=== PATIENT | female | born 1980 | race Caucasian/White ===

== ENCOUNTER → 2020-06-17 | Outpatient (CLI) | payer OTHER ==
[~2020-06-17] MED LIST: CONTRAST GIVEN. MC PRN; IOHEXOL 300 MG/ML 100ML VIAL. IV ONE
--- NOTE | 2020-06-17 19:58 | RAD ---
CT SCAN OF THE ABDOMEN AND PELVIS with and without IV CONTRAST. History: Reason: POST-OP, DYSURIA, KIDNEY STONES, RECENT LEFT SIDED OVARIAN SOULEYMANE Comparison:None. Procedure: Contiguous axial images of the abdomen and pelvis were performed after the administration of 75 cc of Omni 300 IV contrast. Portal venous and delayed phases were obtained. Maximum intensity projected images are obtained with a delayed images for a CT urogram. Oral contrast: No. Findings: There is a 9.6 cm x 1.7 cm x 7.1 cm air-fluid collection in the abdominal wall just anterior to the abdominis rectus. This is a thin enhancing rim. There are surgical clips in the abdominal wall. There is a gastric lap band. Fluid in the distal esophagus. There has been prior cholecystectomy. The appendix is not well seen. Liver: Unremarkable Spleen: Tiny cyst posteriorly Pancreas: Unremarkable Adrenal Glands: Unremarkable Kidneys: There are multiple small nonobstructive stones in the right renal pelvis. Multiple densities in the low pelvis are felt to be phleboliths. 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 There is no mass or lymphadenopathy. There is no free air. There is no free fluid. The urinary bladder is collapsed and not well evaluated. There is no extravasation of contrast. Impression: 1. Air-fluid collection abdominal wall likely postop seroma. 2. Duplicated left ureter a normal variant. 3. Fluid in the esophagus could be gastroesophageal reflux. 4. Multiple nonobstructive stones in the right renal pelvis. End impression PQRS Compliance Statement: One or more of the following individualized dose reduction techniques were utilized for this examination: 1. Automated exposure control 2. Adjustment of the mA and/or kV according to patient size 3. Use of iterative reconstruction technique Electronically signed by: Moreno Wilson III, MD (06/17/2020 7:55 PM) [facility]
== END ==
LOC: RAD 18:11 → EDBD 18:11
PROVIDERS: ATTEND Obstetrics & Gynecology
DX: N20.0 Calculus of kidney (principal); R30.0 Dysuria; G89.29 Other chronic pain; Z90.49 Acquired absence of other specified parts of digestive tract
CPT/HCPCS: 74178; Q9967

== ENCOUNTER 2021-02-25 12:31 | Emergency (ER) | payer OTHER ==
[~2021-02-25] VITALS: Ht 172.7 cm; Wt 58.6 kg
[2021-02-25] MEDS ORDERED: ONDANSETRON PF 4 MG/2 ML VIAL. IVP ONE (14:00)
[2021-02-25] MEDS ORDERED: IV NORMAL SALINE 1000ML BAG 1,000 ML IV ONE (14:00)
[2021-02-25] MEDS ORDERED: HYDROmorphone 2 MG/ML VIAL IVP ONE ×3 (14:00→16:45)
[2021-02-25 14:10] LABS: BILIRUBIN,URINE SMALL (NEG); CLARITY,URINE CLEAR; COLOR,URINE AMBER; NITRITE,URINE NEGATIVE (NEG); PH,URINE 6.5 (<5.0-8.0); PROTEIN,URINE NEGATIVE (NEG-TRACE)
[2021-02-25 14:26] LABS: BACTERIA,URINE FEW /HPF (0-FEW)
[2021-02-25] MEDS ORDERED: IOHEXOL 300 MG/ML 100ML VIAL. IV ONE ×2 (14:30→15:15)
[2021-02-25] MEDS ORDERED: CONTRAST GIVEN. MC PRN ×2 (14:30→15:15)
[2021-02-25 14:39] LABS: BASO # 0.1 x10^3/uL (0.0-0.2); BASO % 1 % (0-3); EOS # 0.1 x10^3/uL (0.0-0.7); EOS % 2 % (0-3); HEMATOCRIT 39.2 % (36.0-47.0); HEMOGLOBIN 13.3 g/dL (12.0-15.5); LYMPH % 16 % (24-48); MEAN CORPUSCULAR HEMOGLOBIN 33 pg (25-35); MEAN CORPUSCULAR HGB CONC 34 g/dL (31-37); MEAN CORPUSCULAR VOLUME 96 fL (79-100); MONO # 0.4 x10^3/uL (0.0-1.1); MONO % 6 % (0-9); NEUT # 4.4 x10^3/uL (1.8-7.7); NEUT % 75 % (31-73); PLATELET COUNT 186 x10^3/uL (140-400); RED BLOOD COUNT 4.06 x10^6/uL (3.50-5.40); RED CELL DISTRIBUTION WIDTH 15.8 % (11.5-14.5); WHITE BLOOD COUNT 5.9 x10^3/uL (4.0-11.0)
[2021-02-25 15:08] LABS: ALBUMIN 3.8 g/dL (3.4-5.0); ALBUMIN/GLOBULIN RATIO 1.2 (1.0-1.7); CALCIUM 8.8 mg/dL (8.5-10.1); CREATININE 0.6 mg/dL (0.6-1.0); GFR 111.3; TOTAL PROTEIN 6.9 g/dL (6.4-8.2)
[2021-02-25] MEDS ORDERED: POTASSIUM BICARB 20 MEQ EFFERVESCENT TABLET. PO ONE (15:30)
[2021-02-25] MEDS ORDERED: METOCLOPRAMIDE HCL 10 MG/2 ML VIAL. IVP ONE (15:45)
--- NOTE | 2021-02-25 16:11 | RAD ---
EXAM: Abdomen and pelvis CT with intravenous contrast. HISTORY: Right lower quadrant pain. TECHNIQUE: Computed tomographic images of the abdomen and pelvis were obtained following the administ ration of intravenous contrast. Multiplanar reformatting was performed. *One or more of the following individualized dose reduction techniques were utilized for this examina tion: 1. Automated exposure control. 2. Adjustment of the mA and/or kV according to patient size. 3. Use of iterative reconstruction technique. COMPARISON: 06/17/2020 FINDINGS: Evaluation of the lower thorax demonstrates no infiltrate or pleural effusion. There is a p atulous fluid-filled distal esophagus. There is a gastric lap band traversing the proximal gastric ca rdia. There is periportal edema. The gallbladder is surgically absent. There is a common bile duct li angelina due to reservoir effect status post cholecystectomy. The pancreas is unremarkable. There is a sm all cyst or hemangioma within the spleen. The adrenal glands are unremarkable. There is a partially duplicated left renal collecting system. There are punctate nonobstructing renal stones measuring up to 2 mm. There is no hydronephrosis or suspicious renal lesion. There is no evid ence of appendicitis. There is no evidence of bowel obstruction. There is mild wall thickening involv ing loops of small bowel within the left abdomen likely due to peristalsis. There is no convincing ac marshall enteritis or colitis. The bladder is unremarkable. The uterus is absent. There is a 2.2 cm periph erally enhancing right ovarian cyst, likely an involuting cyst. There is a trace amount of pelvic opal e fluid. There are postoperative clips within the ventral abdominal wall. There is no acute or suspic ious osseous lesion. IMPRESSION: 1. 2.2 cm suspected involuting right ovarian cyst. 2. Patulous distal esophagus likely related to a gastric lap band. 3. Mild periportal edema. In the absence of abnormal liver enzyme laboratory values, this is likely d ue to bolus patient hydration. There is also slight biliary ductal dilatation due to reservoir effect status post cholecystectomy. 4. Bilateral nephrolithiasis. 4. Mild bowel wall thickening within the left abdomen, likely due to peristalsis or under distention. There is no convincing enteritis or colitis. There is no appendicitis. Electronically signed by: Radha Jacobson MD (02/25/2021 4:09 PM) [id number]
--- NOTE | 2021-02-25 16:21 | PHYS DOC ---
Past Medical History Past Surgical History: Cholecystectomy, Hysterectomy, Other Additional Past Surgical Histo: LITHROTRIPSY, LEFT OVARY, LAP BAND 2009 (NATE BABB APRN) General Adult EDM: Chief Complaint: ABDOMINAL PAIN HPI: HPI: Patient is a 40 year old female presents emergency department complaining of right lower quadrant pain for the past 7 days, states she has been seen at [facility] several times, reports that last Wednesday she was diagnosed with colitis, was given Colace and [place] for pain, reports she was told to not take the [place] because it may make her constipated, 2 use the Colace first. Patient reports she has had several large bowel movements since using the Colace. Patient reports that her right lower quadrant pain has gotten worse and it is now a 10 out of 10. Patient reports she has had several kidney stone exacerbations in the past and feels that this pain is worse. Patient reports that when her pain gets this bad that she requires Dilaudid for pain control. Patient states she is nauseated, has not vomited today. Patient denies chest pain, shortness of breath, headaches, rashes of her skin, vaginal discharge, increased pain with urination, denies urinary frequency, or burning with urination. Patient denies STI concerns. Patient denies any other physical complaints or physical concerns. (NATE BABB APRN) Review of Systems: Review of Systems: 14 body systems of review of systems have been reviewed. See HPI for pertinent positives and negative responses, otherwise all other systems are negative, nonpertinent or noncontributory. Constitutional: Negative except as outlined in HPI above. Skin: Negative except as outlined in HPI above. Eyes: Negative except as outlined in HPI above. HENT: Negative except as outlined in HPI above. Respiratory: Negative except as outlined in HPI above. Cardiovascular: Negative except as outlined in HPI above. GI: Negative except as outlined in HPI above. : Negative except as outlined in HPI above. Musculoskeletal: Negative except as outlined in HPI above. Integument: Negative except as outlined in HPI above. Neurologic: Negative except as outlined in HPI above. Endocrine: Negative except as outlined in HPI above. Lymphatic: Negative except as outlined in HPI above. Psychiatric: Negative except as outlined in HPI above. (NATE BABB APRN) Heart Score: C/O Chest Pain: No Risk Factors: Risk Factors: DM, Current or recent (<one month) smoker, HTN, HLP, family history of CAD, obesity. Risk Scores: Score 0 - 3: 2.5% MACE over next 6 weeks - Discharge Home Score 4 - 6: 20.3% MACE over next 6 weeks - Admit for Clinical Observation Score 7 - 10: 72.7% MACE over next 6 weeks - Early Invasive Strategies (NATE BABB APRN) Current Medications: Current Medications Medications (Trade) Dose Ordered Sig/Silvestre Start Time Stop Time Status Last Admin Dose Admin Hydromorphone HCl (Dilaudid) 1 mg 1X ONCE 02/25/21 15:45 02/25/21 15:46 DC 02/25/21 16:10 1 MG Info (CONTRAST GIVEN -- Rx MONITORING) 1 each PRN DAILY PRN 02/25/21 15:15 02/27/21 15:14 Iohexol (Omnipaque 300 Mg/ml) 75 ml 1X ONCE 02/25/21 15:15 02/25/21 15:16 DC Metoclopramide HCl (Reglan Vial) 10 mg 1X ONCE 02/25/21 15:45 02/25/21 15:46 DC 02/25/21 16:10 10 MG Ondansetron HCl (Zofran) 4 mg 1X ONCE 02/25/21 14:00 02/25/21 14:05 DC 02/25/21 14:27 4 MG Potassium Bicarbonate (Potassium Effervescent Tablet) 40 meq 1X ONCE 02/25/21 15:30 02/25/21 15:31 DC Sodium Chloride 1,000 ml @ 1,000 mls/hr 1X ONCE 02/25/21 14:00 02/25/21 14:59 DC 02/25/21 14:28 1,000 MLS/HR (NATE BABB APRN) Allergies: Allergies: Allergies Coded Allergies Type Severity Reaction Last Updated Verified No Known Drug Allergies 06/17/20 No (NATE BABB APRN) Physical Exam: PE: Constitutional: Well developed, well nourished, no acute distress, non-toxic appearance. Patient is tearful, writhing around in bed, patient's vital signs do not support patient's physical presentation in appearance. HENT: Normocephalic, atraumatic. Eyes: Conjunctiva normal, no discharge. Neck: Normal range of motion. Cardiovascular: Distal cap refill less than 2 seconds, no cyanosis appreciated. Lungs & Thorax: Patient is in no respiratory distress, no adventitious lung sounds appreciated. Abdomen: Bowel sounds normal, soft, no masses, no pulsatile masses. No bruising or skin discoloration of the abdomen. Pain to palpation right lower quadrant, positive McBurney's point tenderness, positive rebound tenderness, negative psoas sign, positive straight leg test. Skin: Warm, dry, no erythema, no rash. Back: No tenderness, no CVA tenderness. Extremities: No tenderness, no cyanosis, no clubbing, ROM intact, no edema. Neurologic: Alert and oriented X 3, normal motor function, normal sensory function, no focal deficits noted. Psychologic: Affect normal, judgement normal, mood normal. (NATE BABB APRN) Current Patient Data: Labs: Laboratory Tests Test 02/25/21 13:55 02/25/21 14:30 Urine Collection Type Unknown Urine Color Anh Urine Clarity Clear Urine pH 6.5 (<5.0-8.0) Urine Specific Convent 1.025 (1.000-1.030) Urine Protein Negative mg/dL (NEG-TRACE) Urine Glucose (UA) Negative mg/dL (NEG) Urine Ketones (Stick) Trace mg/dL (NEG) Urine Blood Moderate (NEG) Urine Nitrite Negative (NEG) Urine Bilirubin Small (NEG) Urine Urobilinogen Dipstick 1.0 mg/dL (0.2 mg/dL) Urine Leukocyte Esterase Trace (NEG) Urine RBC 11-20 /HPF (0-2) Urine WBC 1-4 /HPF (0-4) Urine Squamous Epithelial Cells Mod /LPF Urine Bacteria Few /HPF (0-FEW) Urine Mucus Marked /LPF White Blood Count 5.9 x10^3/uL (4.0-11.0) Red Blood Count 4.06 x10^6/uL (3.50-5.40) Hemoglobin 13.3 g/dL (12.0-15.5) Hematocrit 39.2 % (36.0-47.0) Mean Corpuscular Volume 96 fL (79-100) Mean Corpuscular Hemoglobin 33 pg (25-35) Mean Corpuscular Hemoglobin Concent 34 g/dL (31-37) Red Cell Distribution Width 15.8 % (11.5-14.5) H Platelet Count 186 x10^3/uL (140-400) Neutrophils (%) (Auto) 75 % (31-73) H Lymphocytes (%) (Auto) 16 % (24-48) L Monocytes (%) (Auto) 6 % (0-9) Eosinophils (%) (Auto) 2 % (0-3) Basophils (%) (Auto) 1 % (0-3) Neutrophils # (Auto) 4.4 x10^3/uL (1.8-7.7) Lymphocytes # (Auto) 1.0 x10^3/uL (1.0-4.8) Monocytes # (Auto) 0.4 x10^3/uL (0.0-1.1) Eosinophils # (Auto) 0.1 x10^3/uL (0.0-0.7) Basophils # (Auto) 0.1 x10^3/uL (0.0-0.2) Sodium Level 140 mmol/L (136-145) Potassium Level 3.0 mmol/L (3.5-5.1) L Chloride Level 103 mmol/L (98-107) Carbon Dioxide Level 31 mmol/L (21-32) Anion Gap 6 (6-14) Blood Urea Nitrogen 5 mg/dL (7-20) L Creatinine 0.6 mg/dL (0.6-1.0) Estimated GFR (Cockcroft-Gault) 111.3 BUN/Creatinine Ratio 8 (6-20) Glucose Level 58 mg/dL (70-99) L Calcium Level 8.8 mg/dL (8.5-10.1) Total Bilirubin 1.0 mg/dL (0.2-1.0) Aspartate Amino Transferase (AST) 16 U/L (15-37) Alanine Aminotransferase (ALT) 25 U/L (14-59) Alkaline Phosphatase 87 U/L (46-116) Total Protein 6.9 g/dL (6.4-8.2) Albumin 3.8 g/dL (3.4-5.0) Albumin/Globulin Ratio 1.2 (1.0-1.7) Lipase 88 U/L (73-393) Laboratory Tests 02/25/21 14:30 Laboratory Tests 02/25/21 14:30 Vital Signs: Vital Signs Date Time Temp Pulse Resp B/P (MAP) Pulse Ox O2 Delivery O2 Flow Rate FiO2 02/25/21 16:10 18 99 Room Air 02/25/21 12:52 98.4 75 113/56 98.4 (NATE BABB APRN) EKG: EKG: [] (NATE BABB APRN) Radiology/Procedures: Radiology/Procedures: PATIENT: CJ SANTIAGO ACCOUNT: [id number] : 1980 LOCATION: ER AGE: 40 SEX: F EXAM STATUS: REG ER ORD. PHYSICIAN: NATE BABB APRN REASON: RLQ pain PROCEDURE: CT ABD PELV W/ IV CONTRST ONLY EXAM: Abdomen and pelvis CT with intravenous contrast. HISTORY: Right lower quadrant pain. TECHNIQUE: Computed tomographic images of the abdomen and pelvis were obtained following the administration of intravenous contrast. Multiplanar reformatting was performed. *One or more of the following individualized dose reduction techniques were utilized for this examination: 1. Automated exposure control. 2. Adjustment of the mA and/or kV according to patient size. 3. Use of iterative reconstruction technique. COMPARISON: 06/17/2020 FINDINGS: Evaluation of the lower thorax demonstrates no infiltrate or pleural effusion. There is a patulous fluid-filled distal esophagus. There is a gastric lap band traversing the proximal gastric cardia. There is periportal edema. The gallbladder is surgically absent. There is a common bile duct likely due to reservoir effect status post cholecystectomy. The pancreas is unremarkable. There is a small cyst or hemangioma within the spleen. The adrenal glands are unremarkable. There is a partially duplicated left renal collecting system. There are punctate nonobstructing renal stones measuring up to 2 mm. There is no hydronephrosis or suspicious renal lesion. There is no evidence of appendicitis. There is no evidence of bowel obstruction. There is mild wall thickening involving loops of small bowel within the left abdomen likely due to peristalsis. There is no convincing acute enteritis or colitis. The bladder is unremarkable. The uterus is absent. There is a 2.2 cm peripherally enhancing right ovarian cyst, likely an involuting cyst. There is a trace amount of pelvic free fluid. There are postoperative clips within the ventral abdominal wall. There is no acute or chawla spicious osseous lesion. IMPRESSION: 1. 2.2 cm suspected involuting right ovarian cyst. 2. Patulous distal esophagus likely related to a gastric lap band. 3. Mild periportal edema. In the absence of abnormal liver enzyme laboratory values, this is likely due to bolus patient hydration. There is also slight biliary ductal dilatation due to reservoir effect status post cholecystectomy. 4. Bilateral nephrolithiasis. 4. Mild bowel wall thickening within the left abdomen, likely due to peristalsis or under distention. There is no convincing enteritis or colitis. There is no appendicitis. Electronically signed by: Radha Cruz MD (02/25/2021 4:09 PM) [id number] DICTATED and SIGNED BY: RADHA CRUZ MD DATE: 02/25/21 [id number] PATIENT: CJ SANTIAGO ACCOUNT: [id number] : 1980 LOCATION: ER AGE: 40 SEX: F EXAM STATUS: REG ER ORD. PHYSICIAN: NATE BABB APRN REASON: Right adnexal pain, torsion study PROCEDURE: TRANSVAGINAL EXAM: Pelvic sonogram. HISTORY: Right adnexal pain. TECHNIQUE: Transvaginal sonographic imaging of the pelvis was performed. COMPARISON: CT obtained on the same date. FINDINGS: The uterus and left ovary are surgically absent. The right ovary measures 4.4 x 2.8 x 2.4 cm and contains a complicated cyst measuring 2.8 cm. This likely hemorrhagic. There is normal blood flow within the right ovary. There is no pelvic free fluid. IMPRESSION: 1. 2.8 cm suspected hemorrhagic right ovarian cyst. There is no evidence of ovarian torsion. 2. Surgically absent uterus and left ovary. Electronically signed by: Radha Cruz MD (02/25/2021 5:29 PM) [id number] (NATE BABB APRN) Course & Med Decision Making: Course & Med Decision Making Pertinent Labs and Imaging studies reviewed. (See chart for details) 40-year-old female, vital signs reviewed, presents to the emergency department with chief complaint of right lower quadrant pain for the past week. Patient's physical examination concerning for appendicitis versus other abdominal process. Will order urinalysis assay, CT abdomen pelvis with IV contrast. IV fluids, IV pain medications, antinausea medications IV. Patient's CT abdomen concerning for cyst of right ovary, will order sonogram to rule out ovarian torsion, the patient's urine is not infected. Pelvic ultrasound to rule out ovarian torsion negative for ovarian torsion however does report 2.8 cm right hemorrhagic cyst, called and to discuss case with EMPLOYEE WELFARE MANAGER specialist Dr. Brooke who recommended discharge to home and follow-up in office this week if hemoglobin is stable and within normal limits. The patient's serum lab work unremarkable, the patient is not anemic. Upon reexamination of the patient, patient reports her pain is down to a 5 out of 10. Discussed with patient pelvic ultrasound findings, Dr. Brooke's recommendations, patient reports she is followed by EMPLOYEE WELFARE MANAGER Dr. Rojo who has recommended her right ovary be removed, Dr. Rojo told her she suspected her pain would come back and she would have problems if her ovary was not removed. Patient reveals that she did not want to lose her last ovary as her left ovary has been removed already. Discussed with patient need to follow-up with her EMPLOYEE WELFARE MANAGER specialist Dr. Rojo for ongoing evaluation and care for right ovarian discrepancies. 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 Discussed with the patient all findings and diagnostic testing as well as the need to follow-up with their primary care provider for further evaluation and treatment or return to the ED if any new or worsening symptoms. Strict return precautions were also discussed at length, the patient voiced understanding and agreement with the discharge planning. The patient was nontoxic in appearance, in no apparent distress, and hemodynamically stable at the time of disposition. (NATE BABB APRN) Course & Med Decision Making I have participated in the care of this patient and I have reviewed and agree with all pertinent clinical information above including history, exam, and recommendations. EMPLOYEE WELFARE MANAGER consult as above, findings of hemorrhagic cyst on objective work-up. Patient stable for discharge with follow-up in the clinic. Isela Carranza DO (ISELA CARRANZA DO) Pari Disclaimer: Pari Disclaimer: This electronic medical record was generated, in whole or in part, using a voice recognition dictation system. (NATE BABB APRN) Departure Departure Impression: Primary Impression: Abdominal pain Qualified Codes: R10.31 - Right lower quadrant pain Additional Impression: Ovarian cyst Qualified Codes: N83.201 - Unspecified ovarian cyst, right side Disposition: 01 HOME / SELF CARE / HOMELESS Condition: GOOD Referrals: [facility] LEMONS-[facility]IN[facility] (PCP) Patient Instructions: Ovarian Cyst Additional Instructions: You were seen today in the emergency department for right lower quadrant abdominal pain. An extensive abdominal work-up was performed today, the CT scan showed a ovarian cyst of the right ovary, your pain was difficult to control, therefore a sonogram of the ovary to examine the fallopian tube was performed to rule out a torsion, there was no ovarian torsion. You had indicated that your EMPLOYEE WELFARE MANAGER specialist suspected that your right ovary may need removed. Please follow-up with EMPLOYEE WELFARE MANAGER specialist Dr. Rojo for reexamination, please let Dr. Rojo know of the scans that were performed here today so that Dr. Rojo can review them to assist in making a educated decision in your health care. Please continue to use your home pain medication as directed by your doctors. Thank you for visiting our Emergency Department. It was a pleasure taking care of you today in the emergency department and we appreciate you trusting us with your care. If any additional problems come up don't hesitate to return to visit us. Please follow up with your primary care provider so they can plan additional care if needed and know about the problem that you had. If symptoms worsen come back to the Emergency Department. Any concerning symptoms that start such as chest pain, shortness of air, weakness or numbness on one side of the body, running high fevers or any other concerning symptoms return to the ER. EMERGENCY DEPARTMENT GENERAL DISCHARGE INSTRUCTIONS Thank you for coming to [facility] Emergency Department (ED) today and trusting us with you care. We trust that you had a positive experience in our Emergency Department. If you wish to speak to the department management, you may call the Director at [phone]. YOUR FOLLOW UP INSTRUCTIONS ARE FOLLOWS: 1. Do you have a private Doctor? If you do not have a private doctor, please ask for a resource list of physicians or clinics that may be able to assist you with follow up care. 2. The Emergency Physicain has interpreted your x-rays. The X-Ray specialist will also review them. If there is a change in the findings, you will be notified in 48 hours when at all possible. 3. A lab test or culture has been done, your results will be reviewed and you will be notified if you need a change in treatment. ADDITIONAL INSTRUCTIONS AND INFORMATION: 1. Your care today has been supervised by a physician who is specially trained in emergency care. Many problems require more than one evaluation for a complete diagnosis and treatment. We recommend that you schedule your follow up appointment as recommended to ensure complete treatment of you illness or injury. If you are unable to obtain follow up care and continue to have a problem, or if your condition worsens, we recommend that you return to the ED. 2. We are not able to safely determine your condition over the phone nor are we able to give sound medical advice over the phone. For these safety reasons, if you call for medical advice we will ask you to come to the ED for further evaluation. 3. If you have any questions regarding these discharge instructions please call the ED at [phone]. SAFETY INFORMATION: In the interest of safety, wellness, and injury prevention; we encourage you to wear your sealbelt, if you smoke; quite smoking, and we encourage family to use a prot ective helmet for bicycling and other sporting events that present an increased risk for head injury. IF YOUR SYMPTOMS WORSEN OR NEW SYMPTOMS DEVELOP, OR YOU HAVE CONCERNS ABOUT YOUR CONDITION; OR IF YOUR CONDITION WORSENS WHILE YOU ARE WAITING FOR YOUR FOLLOW UP APPOINTMENT; EITHER CONTACT YOUR PRIMARY CARE DOCTOR, THE PHYSICIAN WHOSE NAME AND NUMBER YOU WERE GIVEN, OR RETURN TO THE ED IMMEDIATELY. NATE BABB APRN Feb 25, 2021 16:21 ISELA CARRANZA DO Feb 26, 2021 06:26
--- NOTE | 2021-02-25 17:32 | RAD ---
EXAM: Pelvic sonogram. HISTORY: Right adnexal pain. TECHNIQUE: Transvaginal sonographic imaging of the pelvis was performed. COMPARISON: CT obtained on the same date. FINDINGS: The uterus and left ovary are surgically absent. The right ovary measures 4.4 x 2.8 x 2.4 c m and contains a complicated cyst measuring 2.8 cm. This likely hemorrhagic. There is normal blood fl ow within the right ovary. There is no pelvic free fluid. IMPRESSION: 1. 2.8 cm suspected hemorrhagic right ovarian cyst. There is no evidence of ovarian torsion. 2. Surgically absent uterus and left ovary. Electronically signed by: Radha Jacobson MD (02/25/2021 5:29 PM) [id number]
[2021-02-25 18:10] VITALS: BP 115/59
== END 2021-02-25 18:15 | disposition home or self-care (01) ==
LOC: ER 12:31
DX: N83.201 Unspecified ovarian cyst, right side (principal); Z90.49 Acquired absence of other specified parts of digestive tract; Z90.710 Acquired absence of both cervix and uterus
CPT/HCPCS: 36415; 74177; 76830; 80053; 81001; 83690; 85025; 87040; 87086; 96361; 96374; 96375; 96376; 99285; J1170; J2405; J2765; J7030; Q9967